=== PATIENT | female | born 1960 | race American Indian/Alaskan Native ===

== ENCOUNTER 2017-10-27 20:13 | Emergency (ER) | payer MEDICARE ==
[2017-10-27] MEDS ORDERED: TYLENOL PO ONE (20:31)
[2017-10-27 20:42] LABS: Basophils # (Auto) 0.1 K/mm3 (0.0-0.1); Basophils % (Auto) 0.6 % (0.0-1.8); Eosinophils # (Auto) 0.2 K/mm3 (0.0-0.4); Eosinophils % (Auto) 1.4 % (0.0-4.3); Hematocrit 41.4 % (30.3-42.9); Hemoglobin 13.5 gm/dl (10.1-14.3); Lymphocytes # (Auto) 4.1 K/mm3 (1.2-5.4); Lymphocytes % (Auto) 35.6 % (13.4-35.0); Mean Corpuscular HGB Conc 33 % (30-34); Mean Corpuscular Hemoglobin 28 pg (28-32); Mean Corpuscular Volume 87 fl (79-97); Monocytes # (Auto) 0.7 K/mm3 (0.0-0.8); Monocytes % (Auto) 6.5 % (0.0-7.3); Platelet Count 317 K/mm3 (140-440); Red Blood Count 4.77 M/mm3 (3.65-5.03); Red Cell Distribution Width 15.1 % (13.2-15.2)
[2017-10-27 21:02] LABS: BUN/Creatinine Ratio 19; Blood Urea Nitrogen 13 mg/dL (7-17); Calcium 8.6 mg/dL (8.4-10.2); Hemolysis Index 8
--- NOTE | 2017-10-27 22:49 | Cat Scan Report ---
FINAL REPORT EXAM: CT HEAD/BRAIN WO CON HISTORY: headache TECHNIQUE: Standard unenhanced CT of the head at 5.0 millimeter axial increments. PRIORS: None. FINDINGS: There is a small area of low-density in the periventricular white matter lateral to the right frontal horn (axial image 38). Although this could represent small vessel ischemic changes, demyelinating disease is not excluded. MRI is recommended. The ventricular system is normal in size and configuration. There is no evidence for parenchymal volume loss. There is no evidence for mass lesion, mass effect, midline shift, acute intracranial hemorrhage, or acute ischemia/ infarction. Visualized paranasal sinuses demonstrates minimal mucosal thickening throughout bilateral ethmoid sinuses. IMPRESSION: Small area of low-density in the periventricular white matter lateral to the right frontal horn. Differential includes early small vessel ischemic changes and demyelinating disease. MRI is recommended.
[2017-10-28] MEDS ORDERED: SUBLIMAZE IV ONE (01:01)
[2017-10-28] MEDS ORDERED: BENADRYL IV ONE (01:01)
[2017-10-28] MEDS ORDERED: TORADOL IV ONE (01:01)
[2017-10-28] MEDS ORDERED: TESSALON PERLES PO ONE (01:01)
[2017-10-28] MEDS ORDERED: REGLAN IV ONE (01:01)
--- NOTE | 2017-10-28 01:29 | XRay Report ---
FINAL REPORT EXAM: XR CHEST 1V AP HISTORY: chest pain COMPARISON: None available. FINDINGS: Frontal view(s) of the chest obtained. Cardiac silhouette within normal limits. No gross consolidation or effusion. No pneumothorax. IMPRESSION: No grossly acute findings.
--- NOTE | 2017-10-28 01:58 | Emergency Department Report ---
HPI - General Chief Complaint: Headache Time Seen by Provider: 10/28/17 00:25 - HPI HPI: Patient is a 57-year-old female who presents for evaluation of headache. The patient reports headache for the past one day, denies/10 in severity, aching quality, constant since onset, waxing and waning, worse with movement. She also complains of a mild dry cough for the past one day. The patient denies fever, head injury, headache, neck pain, neck stiffness, vision or hearing changes, smell or taste changes, paresthesias, facial drooping, slurred speech, seizure-like activity, urine or bowel incontinence or retention, or other focal neurological deficit. ED Past Medical Hx - Past Medical History Hx Hypertension: Yes (1988) Hx Asthma: Yes - Surgical History Additional Surgical History: tubal ligation Fissure removed. Hysterectomy. - Social History Smoking Status: Current Every Day Smoker Substance Use Type: Alcohol - Medications Home Medications: Home Medications Medication Instructions Recorded Confirmed Last Taken Type Aspirin [Aspirin BABY CHEW TAB] 81 mg PO QDAY 07/28/13 08/05/14 07/16/14 History Lisinopril/Hydrochlorothiazide 1 tab PO QDAY 07/28/13 08/05/14 07/23/14 05:00 History [Zestoretic 20-25 mg] Budesoni/Formoterol 80-4.5(Nf) 2 puff IH PRN PRN 07/16/14 08/05/14 05/28/14 History [Symbicort 80-4.5 (Nf)] Amoxicillin 500 mg PO BID #20 tablet 12/16/14 Unknown Rx Fluticasone [Flonase] 1 spray NS QDAY #1 bottle 12/16/14 Unknown Rx Ibuprofen [Motrin] 800 mg PO Q8H PRN #10 tablet 12/16/14 Unknown Rx methylPREDNISolone [Medrol Dose 4 mg PO .TAPER #1 tab.ds.pk 12/16/14 Unknown Rx Chivo] Acetaminophen/Codeine [Tylenol 1 tab PO Q6H PRN #15 tab 11/11/15 Unknown Rx /Codeine # 3 tab] methOCARBAMOL [Robaxin TAB] 500 mg PO BID #20 tab 11/11/15 Unknown Rx Benzonatate [Tessalon Perles] 100 mg PO Q8HR #20 capsule 10/28/17 Unknown Rx Butalb/Acetaminophen/Caffeine 1 - 2 cap PO Q6HR PRN #12 cap 10/28/17 Unknown Rx [Fioricet 50-300-40 mg CAP] ED Review of Systems ROS: Stated complaint: HTN Other details as noted in HPI Constitutional: denies: fever ENT: denies: throat or neck pain Respiratory: denies: cough, shortness of breath Cardiovascular: denies: chest pain Endocrine: denies unexplained weight loss or gain Gastrointestinal: denies: abdominal pain, nausea Genitourinary: denies: dysuria Musculoskeletal: denies: leg swelling Skin: denies: rash Neurological: reports headache Hematological/Lymphatic: denies: easy bleeding or easy bruising Psych: denies sadness or hopelessness Physical Exam - Physical Exam Vital Signs: Vital Signs 10/27/17 10/28/17 20:21 01:50 Temperature 98.5 F Pulse Rate 107 H Respiratory 10 L Rate Blood Pressure 148/88 O2 Sat by Pulse 98 Oximetry Physical Exam: General: well-nourished, well-developed, no acute distress Head: Normocephalic, atraumatic Eyes: normal sclera, PERRL, EOM intact ENT: Mucous membranes are pale and dry Neck: No neck stiffness, no cervical adenopathy Respiratory: Breath sounds equal bilaterally, no wheezing, rales, or rhonchi Cardio: S1 and S2 present, no murmurs, rubs, gallops, capillary refill is delayed Abdomen: Normoactive bowel sounds, soft abdomen, no rigidity, no guarding or rebound tenderness Chest WALL/Back: No tenderness to palpation of the chest wall, no CVA tenderness with percussion Musc: No pitting edema Skin: No rash Neuro: alert oriented x4, normal cognition, speech normal, no facial drooping, no uvula or tongue deviation on protrusion, no deficit with rotation of neck or shoulder shrug, no obvious gross motor deficit in the upper or lower extremities with flexion or extension at the shoulder, elbow, wrist, hip, knee, or ankle bilaterally, no obvious gross sensation deficit to crude touch or 2 pt discrimination, 2+ symmetric reflexes on DTR testing, no dysmetria, dysdiadochokinesia, no coordination deficit with [id number] or [id number] testing, Babinski downgoing, patient able to to ambulate without abnormal gait Psych: Normal affect ED Course Vital Signs 10/27/17 10/28/17 20:21 01:50 Temperature 98.5 F Pulse Rate 107 H Respiratory 10 L Rate Blood Pressure 148/88 O2 Sat by Pulse 98 Oximetry ED Medical Decision Making - Lab Data Result diagrams: 10/27/17 20:32 10/27/17 20:32 - Medical Decision Making The patient was seen and examined by myself. The patient is placed on a gas plant technician and continuous pulse ox. On initial evaluation, the patient was found to be in no distress. X-ray of the chest negative for acute cardiopulmonary disease process. EKG was unremarkable. CT scan head is negative for acute emergent intracranial disease process. IV access is established and the patient is given IV Reglan, Benadryl, and IV Toradol for headache. The patient was reevaluated and reported that their symptoms were markedly improved. The patient is stable for discharge with outpatient follow- up. The patient is given follow-up and return instructions. The patient expressed understanding and agreed with the plan. The patient is discharged in stable condition. Critical care attestation.: If time is entered above; I have spent that time in minutes in the direct care of this critically ill patient, excluding procedure time. ED Disposition Clinical Impression: Acute non intractable tension-type headache, Hypertensive urgency Disposition: DC-01 TO HOME OR SELFCARE Is pt being admited?: No Does the pt Need Aspirin: No Condition: Stable Instructions: Hypertension (ED), Acute Headache (ED) Referrals: PRIMARY CARE, [Primary Care Provider] - 3-5 Days Time of Disposition: 01:57
[2017-10-28 03:24] VITALS: BP 104/61
== END 2017-10-28 03:23 | disposition home or self-care (01) ==
LOC: ED 20:13
DX: G44.209 Tension-type headache, unspecified, not intractable (principal); I16.0 Hypertensive urgency; I10 Essential (primary) hypertension; R05 Cough; J45.909 Unspecified asthma, uncomplicated; F17.200 Nicotine dependence, unspecified, uncomplicated; Z98.51 Tubal ligation status; Z90.710 Acquired absence of both cervix and uterus; Z88.6 Allergy status to analgesic agent
CPT/HCPCS: 36415; 70450; 71045; 80048; 85025; 93005; 93010; 96374; 96375; 99285; J1200; J1885; J2765; J3010